=== PATIENT | female | born 1975 | race Caucasian/White ===

== ENCOUNTER 2017-11-13 10:59 | Inpatient (IN) | payer MEDICAID ==
[~2017-11-13] VITALS: Ht 162.6 cm; Wt 81.6 kg
[2017-11-13] MEDS ORDERED: NACL 0.9% 1,000 ML IV ONE (11:02)
[2017-11-13 11:09] VITALS: BP_SYST 122
[2017-11-13 11:53] LABS: BILIRUBIN,URINE NEGATIVE (NEGATIVE); CLARITY/URINE HAZY (CLEAR); COLOR,URINE YELLOW (YELLOW); GLUCOSE,URINE NEGATIVE (NEGATIVE); KETONES,URINE NEGATIVE (NEGATIVE); LEUKOCYTE ESTERASE ,URINE NEGATIVE (NEGATIVE); NITRITE, URINE NEGATIVE (NEGATIVE); PROTEIN URINE 1+ (NEGATIVE); UROBILINOGEN,URINE 0.2 (0.2-1.0)
[2017-11-13 11:54] LABS: HEMATOCRIT 35.5 % (36-48); HEMOGLOBIN 11.5 g/dL (12.0-16.0); MEAN CORPUSCULAR HEMOGLOBIN 24 pg (27-31); MEAN CORPUSCULAR HGB CONC 32 % (32-36); MEAN CORPUSCULAR VOLUME 75 fL (79.0-98.0); PLATELET COUNT (AUTO) 230 K/uL (130-430); RED BLOOD CELL COUNT(AUTO) 4.73 MIL/uL (4.2-6.2); RED CELL DISTRIBUTION WIDTH 18.9 % (9.0-15.0); WHITE BLOOD COUNT (AUTO) 15.5 K/uL (4.8-10.8)
[2017-11-13 11:55] LABS: BLOOD, URINE TRACE (NEGATIVE)
[2017-11-13 12:12] LABS: CREATININE 0.77 mg/dL (0.55-1.30); POTASSIUM 3.8 mmol/L (3.5-5.1)
[2017-11-13 12:13] LABS: INR 0.9 (0.8-1.2); PROTHROMBIN TIME 9.6 SECS (9.5-12.5)
[2017-11-13 12:18] LABS: ALBUMIN 3.3 g/dL (3.4-4.8); TOTAL BILIRUBIN 0.6 mg/dL (0.0-1.0)
[2017-11-13 12:18] LABS: BACTERIA,URINE FEW /HPF (None Seen)
[2017-11-13 12:19] LABS: URINE AMORPHOUS URATE 1+ /HPF (None Seen)
[2017-11-13] MEDS ORDERED: MORPHINE 4 MG/ML INJ. SYRINGE ONE (12:29)
[2017-11-13 12:41] LABS: BAND % (MANUAL) 4 % (0-6); BASOPHILS % (MANUAL) 0 % (0-2); EOSINOPHILS % (MANUAL) 0 % (0-7); LYMPHOCYTES % (MANUAL) 5 % (20-46); MONOCYTES % (MANUAL) 4 % (0-11)
[2017-11-13] MEDS ORDERED: MORPHINE 4 MG/ML INJ. SYRINGE IVP ONE ×2 (14:15→17:30)
[2017-11-13] MEDS ORDERED: cefTRIAXone 1 GM IVPB PREMIX 50 ML IV ONE (16:00)
[2017-11-13] MEDS ORDERED: ONDANSETRON HCL 4 MG/2 ML VIAL IVP ONE ×2 (17:00→20:30)
[2017-11-13] MEDS ORDERED: ONDANSETRON HCL 4 MG/2 ML VIAL IVP PRN (20:30)
[2017-11-13 20:59] VITALS: BP_SYST 130
[2017-11-13] MEDS: D5LR 1,000 ML IV SCH (21:03)
[2017-11-14 00:11] VITALS: BP_SYST 125
[2017-11-14] MEDS: MORPHINE 4 MG/ML INJ. SYRINGE IVP PRN ×2 (01:22→06:17)
[2017-11-14] MEDS: D5LR 1,000 ML IV SCH ×2 (06:21→21:35)
[2017-11-14 07:50] VITALS: BP_SYST 116
[2017-11-14 10:00] VITALS: BP_SYST 121
[2017-11-14] MEDS ORDERED: OXYCODONE/ACETAMINOPHEN 5-325 TABLET PO PRN (12:15)
[2017-11-14] MEDS ORDERED: MIDAZOLAM HCL 5 MG/5 ML VIAL IVP PRN (12:15)
[2017-11-14] MEDS ORDERED: fentaNYL CITRATE/PF 100 MCG/2 ML AMP IVP PRN (12:15)
[2017-11-14] MEDS ORDERED: ONDANSETRON HCL 4 MG/2 ML VIAL IVP PRN (12:15)
[2017-11-14] MEDS ORDERED: IBUPROFEN 800 MG TABLET PO PRN (12:15)
[2017-11-14] MEDS ORDERED: ONDANSETRON HCL 4 MG/2 ML VIAL IVP ONE (12:15)
[2017-11-14] MEDS ORDERED: MEPERIDINE HCL/PF 25 MG/ML DISP.SYRIN IVP PRN (12:15)
[2017-11-14] MEDS ORDERED: HYDROmorphone 1 MG INJ. 1 MG/ML AMPUL IVP PRN (12:15)
[2017-11-14] MEDS ORDERED: NALOXONE HCL 0.4 MG/ML AMP (NARCAN) IVP ONE (12:15)
[2017-11-14] MEDS ORDERED: KETOROLAC TROMETHAMINE 30 MG VIAL IVP ONE (12:15)
[2017-11-14] MEDS ORDERED: BUPIVACAINE /PF 0.25% 30 ML VIAL INJ ONE (12:36)
[2017-11-14] MEDS ORDERED: LIDOCAINE 1% 10 MG/ML, 20 ML MDV ONE (12:36)
[2017-11-14] MEDS ORDERED: KETOROLAC TROMETHAMINE 30 MG VIAL ONE (12:36)
[2017-11-14] MEDS ORDERED: CEFAZOLIN 2 GM IVPB PREMIX 50 ML IV ONE (12:36)
[2017-11-14] MEDS ORDERED: NS IRRIG SOLN 1000 ML IR ONE (12:36)
[2017-11-14] MEDS ORDERED: fentaNYL CITRATE 250 MCG/5 ML AMP ONE (12:36)
[2017-11-14] MEDS ORDERED: MEPERIDINE HCL/PF 100 MG/ML AMP ONE (12:36)
[2017-11-14] MEDS ORDERED: PHENYLEPHRINE HCL 10 MG/ML VIAL (NEOSYNEPHRINE) ONE (12:36)
[2017-11-14] MEDS ORDERED: ONDANSETRON HCL 4 MG/2 ML VIAL ONE (12:36)
[2017-11-14] MEDS ORDERED: SEVOFLURANE 15 MIN GAS INH ONE (12:36)
[2017-11-14] MEDS ORDERED: MIDAZOLAM HCL 5 MG/ML VIAL (VERSED) IV ONE (12:36)
[2017-11-14] MEDS ORDERED: EPINEPHrine 1 MG/ML AMP ONE (12:36)
[2017-11-14] MEDS ORDERED: PROPOFOL 200MG/ 20ML VIAL (DIPRIVAN) IV ONE (12:36)
[2017-11-14] MEDS ORDERED: NS 1000 ML IV.SOLN IV ONE (12:36)
[2017-11-14] MEDS ORDERED: LR 1,000 ML IV.SOLN IV ONE (12:36)
[2017-11-14] MEDS ORDERED: ROCURONIUM BROMIDE 10 MG/ML (ZEMURON) ONE (12:36)
[2017-11-14] MEDS ORDERED: GLYCOPYRROLATE 0.2 MG/ML VIAL ONE (12:36)
[2017-11-14] MEDS ORDERED: CLINDAMYCIN PHOSPHATE 600 mg/50mL D5W IV ONE (12:36)
[2017-11-14] MEDS ORDERED: GENTAMICIN 80 mg/ NS 100 mL IVPB IV ONE (12:36)
[2017-11-14] MEDS ORDERED: DEXAMETHASONE SOD PHOSPHATE 4 MG/ML VIAL ONE (12:36)
[2017-11-14] MEDS ORDERED: NEOSTIGMINE METHYLSULFATE 1 MG/ML, 10 ML VIAL ONE (12:36)
[2017-11-14] MEDS ORDERED: SUCCINYLCHOLINE CHLORIDE 20 MG/ML(QUELICIN) ONE (12:36)
[2017-11-14] MEDS: MEPERIDINE HCL/PF 50 MG/ML AMP IM PRN ×2 (14:07→20:51)
[2017-11-14] MEDS: CEFAZOLIN 2 GM IVPB PREMIX 50 ML IV SCH ×2 (17:02→21:30)
[2017-11-14] MEDS: CLINDAMYCIN 600 mg/50mL D5W 50 ML IV SCH ×2 (17:57→23:19)
[2017-11-14 20:00] VITALS: BP_SYST 110
[2017-11-14] MEDS ORDERED: ZOLPIDEM TARTRATE 5 MG TABLET PO PRN (21:00)
[2017-11-15 01:20] VITALS: BP_SYST 99
[2017-11-15] MEDS: D5LR 1,000 ML IV SCH ×3 (06:20→15:23)
[2017-11-15 07:11] LABS: ALBUMIN 2.5 g/dL (3.4-4.8); BILIRUBIN,DIRECT 0.1 mg/dL (0.0-0.3); TOTAL BILIRUBIN 0.2 mg/dL (0.0-1.0)
[2017-11-15 08:20] VITALS: BP_SYST 128
[2017-11-15 12:02] LABS: HEMATOCRIT 30.8 % (36-48); HEMOGLOBIN 9.7 g/dL (12.0-16.0); MEAN CORPUSCULAR HEMOGLOBIN 24 pg (27-31); MEAN CORPUSCULAR HGB CONC 32 % (32-36); MEAN CORPUSCULAR VOLUME 77 fL (79.0-98.0); PLATELET COUNT (AUTO) 256 K/uL (130-430); RED BLOOD CELL COUNT(AUTO) 4.03 MIL/uL (4.2-6.2); RED CELL DISTRIBUTION WIDTH 18.6 % (9.0-15.0)
[2017-11-15 12:29] VITALS: BP_SYST 126
[2017-11-15] MEDS: MEPERIDINE HCL/PF 50 MG/ML AMP IM PRN ×2 (12:32→20:26)
[2017-11-15 13:06] LABS: LYMPHOCYTES % (MANUAL) 11 % (20-46)
[2017-11-15 13:08] LABS: BAND % (MANUAL) 7 % (0-6); BASOPHILS % (MANUAL) 0 % (0-2); EOSINOPHILS % (MANUAL) 0 % (0-7); MONOCYTES % (MANUAL) 0 % (0-11)
[2017-11-15 16:20] VITALS: BP_SYST 131
[2017-11-15 19:15] VITALS: BP_SYST 127
[2017-11-15] MEDS: DOXYCYCLINE HYCLATE 100 MG CAPSULE PO SCH (20:15)
[2017-11-15] MEDS: metroNIDAZOLE 500 MG TABLET PO SCH (20:15)
[2017-11-15] MEDS ORDERED: DOXYCYCLINE HYCLATE 100 MG CAPSULE PO SCH (21:00)
[2017-11-16] MEDS: MEPERIDINE HCL/PF 50 MG/ML AMP IM PRN (00:43)
[2017-11-16] MEDS: D5LR 1,000 ML IV SCH ×2 (00:48→07:20)
[2017-11-16 00:55] VITALS: BP_SYST 121
[2017-11-16 06:36] LABS: BASOPHILS # (AUTO) 0.1 K/uL (0.0-0.2); BASOPHILS % (AUTO) 0.6 % (0.0-2.0); EOSINOPHILS # (AUTO) 0.1 K/uL (0.0-0.4); EOSINOPHILS % (AUTO) 0.7 % (0.0-4.0); HEMOGLOBIN 9.5 g/dL (12.0-16.0); LYMPHOCYTES % (AUTO) 20.8 % (20.5-51.5); MEAN CORPUSCULAR HEMOGLOBIN 25 pg (27-31); MEAN CORPUSCULAR HGB CONC 33 % (32-36); MEAN CORPUSCULAR VOLUME 76 fL (79.0-98.0); MONOCYTES # (AUTO) 0.8 K/uL (0.0-1.0); NEUTROPHILS # (AUTO) 6.4 K/uL (1.8-7.7); NEUTROPHILS % (AUTO) 69.9 % (40.0-70.0); PLATELET COUNT (AUTO) 277 K/uL (130-430); RED BLOOD CELL COUNT(AUTO) 3.79 MIL/uL (4.2-6.2); RED CELL DISTRIBUTION WIDTH 18.5 % (9.0-15.0); WHITE BLOOD COUNT (AUTO) 9.4 K/uL (4.8-10.8)
[2017-11-16 08:36] VITALS: BP_SYST 123
[2017-11-16] MEDS: metroNIDAZOLE 500 MG TABLET PO SCH (08:37)
[2017-11-16] MEDS: DOXYCYCLINE HYCLATE 100 MG CAPSULE PO SCH (08:37)
[2017-11-16 11:26] VITALS: BP_SYST 138
[2017-11-16 12:28] VITALS: BP_SYST 138
== END 2017-11-16 12:45 | disposition home or self-care (01) | DRG 224 ==
LOC: SED 10:59 → SMU 20:21
PROVIDERS: ADMIT Specialist; ATTEND Specialist
PROC: 0DNW4ZZ Release Peritoneum, Percutaneous Endoscopic Approach (ICD-10-PCS; 2017-11-14)
PROC: 0D9W4ZZ Drainage of Peritoneum, Percutaneous Endoscopic Approach (ICD-10-PCS; 2017-11-14)
PROC: 0WJJ4ZZ Inspection of Pelvic Cavity, Percutaneous Endoscopic Approach (ICD-10-PCS; principal; 2017-11-14 10:45)
DX: K57.92 Diverticulitis of intestine, part unspecified, without perforation or abscess without bleeding (principal); K76.0 Fatty (change of) liver, not elsewhere classified; N73.5 Female pelvic peritonitis, unspecified; N73.9 Female pelvic inflammatory disease, unspecified; N80.0 Endometriosis of uterus; N83.202 Unspecified ovarian cyst, left side; N73.6 Female pelvic peritoneal adhesions (postinfective)
CPT/HCPCS: 36415; 71045; 76700-TC; 76830-TC; 76857; 80053; 80076; 81000-TC; 82150-TC; 82550-TC; 83605; 83690-TC; 84484; 84702-TC; 85007; 85025; 85027; 85610-TC; 85730-TC; 86886; 86900; 86901; 87040-TC; 87070-TC; 87075-TC; 87081; 93005; 96361; 96365; 96375; 96376; 99285; J0171; J0330; J0690; J0696; J1100; J1580; J1885; J2001; J2175; J2250; J2270; J2370; J2405; J2704; J2710; J3010; J3490; J7030; J7120

== ENCOUNTER 2017-12-31 12:27 | Emergency (ER) | payer MEDICAID ==
[~2017-12-31] VITALS: Ht 162.6 cm; Wt 72.6 kg
[2017-12-31 12:41] VITALS: BP_SYST 145
[2017-12-31] MEDS ORDERED: ONDANSETRON HCL 4 MG/2 ML VIAL IVP ONE ×2 (13:00→14:45)
[2017-12-31] MEDS ORDERED: NACL 0.9% 1,000 ML IV ONE (13:00)
[2017-12-31 13:26] LABS: BILIRUBIN,URINE NEGATIVE (NEGATIVE); BLOOD, URINE NEGATIVE (NEGATIVE); CLARITY/URINE SL HAZY (CLEAR); COLOR,URINE YELLOW (YELLOW); GLUCOSE,URINE NEGATIVE (NEGATIVE); KETONES,URINE NEGATIVE (NEGATIVE); LEUKOCYTE ESTERASE ,URINE NEGATIVE (NEGATIVE); NITRITE, URINE NEGATIVE (NEGATIVE); PH,URINE 5.5 (5.0-8.0); PROTEIN URINE NEGATIVE (NEGATIVE); UROBILINOGEN,URINE 0.2 (0.2-1.0)
[2017-12-31 13:31] LABS: BASOPHILS # (AUTO) 0.1 K/uL (0.0-0.2); EOSINOPHILS # (AUTO) 0.2 K/uL (0.0-0.4); EOSINOPHILS % (AUTO) 3.4 % (0.0-4.0); HEMATOCRIT 33.3 % (36-48); HEMOGLOBIN 10.9 g/dL (12.0-16.0); LYMPHOCYTES % (AUTO) 41.6 % (20.5-51.5); MEAN CORPUSCULAR HEMOGLOBIN 25 pg (27-31); MEAN CORPUSCULAR HGB CONC 33 % (32-36); MEAN CORPUSCULAR VOLUME 77 fL (79.0-98.0); MONOCYTES # (AUTO) 0.5 K/uL (0.0-1.0); MONOCYTES % (AUTO) 7.2 % (1.7-9.3); NEUTROPHILS # (AUTO) 3.4 K/uL (1.8-7.7); NEUTROPHILS % (AUTO) 46.8 % (40.0-70.0); PLATELET COUNT (AUTO) 428 K/uL (130-430); RED BLOOD CELL COUNT(AUTO) 4.32 MIL/uL (4.2-6.2); RED CELL DISTRIBUTION WIDTH 16.1 % (9.0-15.0); WHITE BLOOD COUNT (AUTO) 7.2 K/uL (4.8-10.8)
[2017-12-31 13:41] LABS: CREATININE 0.64 mg/dL (0.55-1.30); POTASSIUM 3.8 mmol/L (3.5-5.1)
[2017-12-31 13:45] LABS: ALBUMIN 3.8 g/dL (3.4-4.8); TOTAL BILIRUBIN 0.9 mg/dL (0.0-1.0)
[2017-12-31 16:36] VITALS: BP_SYST 126
== END 2017-12-31 16:36 | disposition home or self-care (01) ==
LOC: SED 12:27
DX: K29.70 Gastritis, unspecified, without bleeding (principal)
CPT/HCPCS: 36415; 80053; 81003; 83690; 85025; 96361; 96374; 96376; 99284; J2405; J7030